=== PATIENT | female | born 1945 | race African-American/Black ===

== ENCOUNTER 2019-05-30 06:13 | Day surgery (SDC) | payer OTHER ==
[2019-05-28 09:32] VITALS: BMI 32.8
[2019-05-30] MEDS ORDERED: LIDOCAINE HCL 1%, 10 MG/ML (20ML VIAL) ONE (07:13)
[2019-05-30] MEDS ORDERED: BUPIVACAINE HCL/PF 0.5% (5 MG/ML) 30 ML VIAL IJ ONE (07:14)
[2019-05-30] MEDS ORDERED: MIDAZOLAM HCL 2 MG/2 ML SINGLE DOSE VIAL ONE (07:44)
[2019-05-30] MEDS ORDERED: SUCCINYLCHOLINE CHLORIDE 200 MG/10 ML SYRINGE ONE (07:45)
[2019-05-30] MEDS ORDERED: PROPOFOL 20 ML ONE ×2 (07:45)
--- NOTE | 2019-05-30 08:13 | HP ---
Satellite [facility] - Chief Complaint Chief Complaint: right hand pain/numnbness - Past Medical History Allergies/Adverse Reactions: Allergies Allergy/AdvReac Type Severity Reaction Status Date / Time No Known Allergies Allergy Verified 05/30/19 07:16 - Current Medications Current Medications: Home Medications Medication Instructions Recorded Amlodipine Besylate 5 mg PO DAILY 05/28/19 Hctz - 25 mg PO DAILY 05/28/19 Potassium Chloride 8 meq PO DAILY 05/28/19 Synthroid 125 mcg PO DAILY 05/28/19 Satellite Physical Exam - Physical Examination Vital Signs: Vital Signs Period Temp Pulse Resp BP Sys/Everett Pulse Ox Last 24 Hr 97.6 F 64 20 134/73 99 General Appearance: Well Nourished, Well Developed, Alert & Oriented x3 ENT: Clear Lung: Normal air movement Heart: Regular rate & rhythm Extremities: Other (right hand- + tinels, + phalens, emg + cts) Neurological: Intact, Alert, Oriented Satellite Impression/Plan - Impression/Plan Impression: right cts Operative Procedure: right ctr Date to be Performed: 05/30/19
[2019-05-30] MEDS ORDERED: PROMETHAZINE HCL 25 MG/1 ML VIAL IVPUSH PRN (09:11)
[2019-05-30] MEDS ORDERED: ONDANSETRON 4 MG/2 ML VIAL IVPUSH PRN (09:11)
[2019-05-30] MEDS ORDERED: oxyCODONE HCL 5 MG TABLET PO PRN (09:11)
--- NOTE | 2019-05-30 09:12 | OP ---
Operative Note - Note: Operative Date: 05/30/19 Pre-Operative Diagnosis: right CTS Operation: right CTR, tenosynovectomy Post-Operative Diagnosis: Same as Pre-op Surgeon: Peter Douglas Anesthesiologist/SLIVER FORMER: Carmen Cloud MD Anesthesia: Local, MAC Specimens Removed: tenosynovium Estimated Blood Loss (mls): 0 Drains, Volume Out (mls): 0 Blood Volume Replaced (mls): 0 Fluid Volume Replaced (mls): 500 Operative Report Dictated: Yes
[2019-05-30] MEDS ORDERED: LACTATED RINGERS SOLUTION 1,000 ML IV SCH (09:15)
[2019-05-30 10:36] VITALS: PULSE 61; TEMP 97.5
[2019-05-30 11:19] VITALS: BP 121/69
--- NOTE | 2019-05-30 14:45 | SPEC ---
DATE OF OPERATION: 05/30/2019 PREOPERATIVE DIAGNOSIS: Right carpal tunnel syndrome. POSTOPERATIVE DIAGNOSIS: Right carpal tunnel syndrome. PROCEDURE: Right carpal tunnel release and tenosynovectomy. SURGEON: Peter Douglas MD ASSISTANTS: None. ANESTHESIOLOGIST: DENISA Sylvester ANESTHESIA: MAC anesthesia, local injection of 16 mL 0.5% Marcaine and 1% lidocaine mixture. DRAINS: None. COMPLICATIONS: None. SPECIMEN: Tenosynovium, right wrist. BLOOD LOSS: None. BLOOD GIVEN: None. FLUID REPLACEMENT: 500 mL. After understanding the potential risks, complications, alternatives and benefits of surgery versus nonsurgical treatment, the patient elected to undergo this procedure. DESCRIPTION OF PROCEDURE: The patient was brought to the operating room, peripheral IV placed and intravenous sedation was given. One gram of intravenous Ancef was given. MAC anesthesia was induced. A tourniquet was applied to the right upper arm and the right upper extremity was prepped and draped in sterile fashion. The entire case was done under 3.8 loupe magnification. A marking pen was utilized to patria out a longitudinal incision in an already existing skin crease. Twenty mL of 0.5% Marcaine mixed with 1% Lidocaine was injected in and around the surgical incision. The right upper extremity was elevated, exsanguinated with an Esmarch bandage and the tourniquet inflated to 250 mmHg. A No. 15 scalpel blade was utilized to cut down through the skin. Subcutaneous hemostasis was achieved with the bipolar cautery. Dissection was done through the superficial palmar fascia. Self-retaining retractors were placed into the wound. Under direct visualization, the transverse carpal ligament was transected with a No. 15 scalpel blade, exposing the median nerve and the contents of the carpal tunnel. The distal and proximal extents of the release were completed with a Littler scissor and checked with irrigation and my small finger. They were seen to be complete. Limited dissection was done on the radial side of the median nerve and more extensive dissection was done on the ulnar side of the median nerve. The patients nerve was seen to be quite compressed by epineurium and therefore a limited epineurotomy was performed. A Ragnell retractor was used to gently retract the median nerve in a radial direction. The patient had a lot of tenosynovitis and therefore a tenosynovectomy was performed off all 9 flexor tendons. This was passed off the field as tenosynovium, right wrist. The floor of the carpal tunnel was checked. There were no abnormal masses or ganglion cysts. The area was copiously irrigated and washed out and closure begun. Undyed 4-0 Vicryl was used to close the deep dermal layer. Final skin reapproximation was done with horizontal mattress 4-0 nylon sutures. The area was then washed and dried, covered with Xeroform, 4x4s, fluffs between the fingers, Webril and a 4-inch plaster roll was utilized to make a volar splint, which was then wrapped with Patricia and Coban. The tourniquet was taken down after a total tourniquet time of minutes. There were no complications during the case. The patient tolerated the procedure well and was brought to the ambulatory recovery room in stable condition. Estuardo [id number]
--- NOTE | 2019-05-31 18:49 | PATH ---
Surgical Pathology Report Patient Name: JOSE ALBERTO SCHNEIDER [facility]. Rec. #: [id number] /Age/Gender: 1945 (Age: 73) / F Account: [id number] Location: [facility] SURGICAL Taken: 05/30/2019 Received: 05/30/2019 Reported: 05/31/2019 Physicians: Peter Douglas M.D. Specimen(s) Received RIGHT HAND TENOSYNOVIUM Clinical History Right carpal tunnel syndrome Final Diagnosis TENOSYNOVIUM, HAND, RIGHT, CARPAL TUNNEL RELEASE: BENIGN DENSE FIBROCONNECTIVE TISSUE. Electronically Signed Sussy Fontaine M.D. Gross Description Received in formalin labeled "right hand tenosynovium" are multiple fragments of yellow-paulino, soft tissue measuring 2 x 2 x 0.5 cm in aggregate. The entire specimen is submitted in one cassette. MLSZ/05/30/2019 sanml/05/30/2019
== END 2019-05-30 12:00 | disposition home or self-care (01) ==
LOC: JASU-SURG 06:13
PROVIDERS: ATTEND Orthopaedic Surgery
PROC: 01N50ZZ Release Median Nerve, Open Approach (ICD-10-PCS; principal; 2019-05-30 08:39)
DX: G56.01 Carpal tunnel syndrome, right upper limb (principal); I10 Essential (primary) hypertension; G47.30 Sleep apnea, unspecified
CPT/HCPCS: 88304-TC; 94760